=== PATIENT | female | born 1985 | race American Indian/Alaskan Native ===

== ENCOUNTER 2017-12-07 01:14 | Inpatient (IN) | payer MEDICAID ==
[2017-12-07] MEDS ORDERED: LACTATED RINGERS 1,000 ML IV ONE (01:55)
--- NOTE | 2017-12-07 03:11 | Ultrasound Report ---
FINAL REPORT PROCEDURE: US OB BPP WO NON-STRESS TECHNIQUE: Real-time limited sonographic examination was performed for evaluation of size, position, heartbeat, fluid volume for each fetus with image documentation (1 or more fetuses). CPT 23394 HISTORY: Leaking Fluid COMPARISON: No prior studies are available for comparison. FINDINGS: biophysical profile: Breathing movements: 2. movements: 2. Posterior and tone: 2. Fluid volume: 2. Total score: 8/8. IMPRESSION: Normal biophysical profile.
--- NOTE | 2017-12-07 03:23 | Ultrasound Report ---
FINAL REPORT PROCEDURE: US OB FOLLOW UP TECHNIQUE: Real-time sonography performed for focused follow-up or re-evaluation of each size/growth parameters and amniotic fluid or re-evaluation of suspected or confirmed abnormality on prior imaging. CPT 97194 HISTORY: Leaking Fluid COMPARISON: No prior studies are available for comparison. FINDINGS: IUP: Single living intrauterine . Position: Cephalic. Placental position: Fundal, without previa . Amniotic fluid volume: Normal . Heart rate and rhythm: 149 BPM, Regular . anatomic survey: Limited evaluation due to advanced gestational age.. MEASUREMENTS BPD: 9.32 centimeters correspond at 37 weeks and 6 days. HC: 34.2 centimeters corresponding to 39 weeks and 3 days. AC: 33.9 centimeters correspond at 37 weeks and 6 days. FL: 7.8 centimeters correspond to 40 weeks and 2 days. Mean Gestational Age (composite criteria): 38 weeks and 6 days. Ratio biometry: Normal . Estimated Weight: 3548 grams. Interval growth: Appropriate . Estimated Due Date (earliest scan): 12/15/2017. IMPRESSION: 1. Single living intrauterine gestation at approximately 38 weeks and 6 days 2. EDC by US 12/15/2017.
[2017-12-07 04:13] LABS: Hematocrit 32.9 % (30.3-42.9); Hemoglobin 10.9 gm/dl (10.1-14.3); Mean Corpuscular HGB Conc 33 % (30-34); Mean Corpuscular Volume 77 fl (79-97); Platelet Count 244 K/mm3 (140-440); Red Blood Count 4.26 M/mm3 (3.65-5.03); Red Cell Distribution Width 15.1 % (13.2-15.2)
[2017-12-07 04:18] LABS: Mean Corpuscular Hemoglobin 26 pg (28-32)
[2017-12-07 04:48] LABS: Hepatitis C Virus Antibody Non-Reactive (NonReactive)
[2017-12-07 06:03] LABS: Rubella IgG Antibody Immune (Immune)
[2017-12-07] MEDS ORDERED: MINERAL OIL PO PRN (08:22)
[2017-12-07] MEDS ORDERED: BRETHINE IVP PRN (08:22)
[2017-12-07] MEDS ORDERED: BRETHINE SUB-Q PRN (08:22)
[2017-12-07] MEDS ORDERED: STADOL IV PRN (08:22)
[2017-12-07] MEDS ORDERED: POLYCILLIN/NS 2 GM/100 ML 2 GM/100 ML BAG IV ONE (08:22)
[2017-12-07] MEDS ORDERED: PHENERGAN PO PRN (08:22)
[2017-12-07] MEDS ORDERED: SUBLIMAZE IV PRN (08:22)
[2017-12-07] MEDS ORDERED: XYLOCAINE 2% INFILTRATI ONE (08:22)
[2017-12-07] MEDS ORDERED: ZOFRAN IV PRN (08:22)
--- NOTE | 2017-12-07 08:29 | History and Physical Report ---
History of Present Illness Date of examination: 12/07/17 Date of admission: 12/07/17 03:24 Chief complaint: Leaking fluid since 19 History of present illness: Pt is a 32yo BF EDC 12/04/17; EGA 40 3/7 weeks presents to L&D complaining of leaking fluid since 19 followed by irregular contractions. She received care at [place], and records are not available. Past History Past Medical History: asthma Past Surgical History: no surgical history Social history: no significant social history, single - Obstetrical History Expected Date of Delivery: 12/04/17 Actual Gestation: 40 Week(s) 3 Day(s) : 2 Medications and Allergies Allergies Allergy/AdvReac Type Severity Reaction Status Date / Time ibuprofen [From Motrin] Allergy MOUTH NUMB Verified 01/01/15 08:45 naproxen Allergy Hives Verified 01/01/15 08:45 shellfish derived Allergy Angioedema Verified 01/01/15 08:45 Home Medications Medication Instructions Recorded Confirmed Last Taken Type Sulfamethoxazole/Trimethoprim 1 each PO BID #20 tablet 01/01/15 Unknown Rx [Bactrim DS TAB] Review of Systems All systems: negative - Vital Signs Vital signs: Vital Signs Pulse BP 88 116/55 12/07/17 01:34 12/07/17 01:34 Temp Pulse Resp BP Pulse Ox 98.1 F 69 16 127/61 99 12/07/17 07:40 12/07/17 08:22 12/07/17 07:40 12/07/17 07:42 12/07/17 08:22 - Physical Exam Breasts: Positive: deferred Cardiovascular: Regular rate Lungs: Positive: Clear to auscultation Abdomen: Positive: normal appearance Genitourinary (Female): Positive: normal external genitalia Vagina: Positive: other (clear fluid) Uterus: Positive: enlarged - Obstetrical FHR: category 1 Uterine Contraction Monitor Mode: External Cervical Dilatation: 1 (per nurse) Cervical Effacement Percentage: 50 (per nurse) station: -3 Uterine Contraction Pattern: Irregular Uterine Tone Measurement Phase: Contraction Uterine Contraction Intensity: Mild Results Result Diagrams: 12/07/17 03:51 Abnormal lab results 12/07/17 Range/Units 03:51 MCV 77 L (79-97) fl MCH 26 L (28-32) pg All other labs normal. Ultrasound: report reviewed Assessment and Plan - Patient Problems (1) 40 weeks gestation of Onset Date: 12/07/17 Current Visit: Yes Status: Acute Plan to address problem: A: IUP @ 40 3/7 weeks SROM Unknown GBS P: Admit to L&D for expectant vaginal delivery IV Ampicillin Obtain records
[2017-12-07] MEDS ORDERED: PITOCin/NS 30 UNIT/500ML 30 UNITS/500 ML BAG IV SCH (09:00)
[2017-12-07] MEDS ORDERED: PITOCin/NS 20 UNIT/1000ML DRIP 20 UNITS/1,000 ML BAG IV SCH (09:00)
[2017-12-07] MEDS: PITOCin/NS 30 UNIT/500ML 30 UNITS/500 ML BAG IV SCH ×3 (09:13→14:56)
[2017-12-07] MEDS: AMPICILLIN/NS 1 GM/50 ML 1 GM/50 ML BAG IV SCH ×2 (15:03→19:32)
[2017-12-07] MEDS: LACTATED RINGERS 1,000 ML IV SCH ×2 (15:03→19:41)
--- NOTE | 2017-12-07 19:28 | Progress Note ---
Assessment and Plan - Patient Problems (1) 40 weeks gestation of Onset Date: 12/07/17 Current Visit: Yes Status: Acute Plan to address problem: A: IUP @ 40 3/7 weeks SROM GBS - Negative +RPR 1:2 P: Continue with pitocin augmentation of labor for expectant vaginal delivery records reviewed Subjective - Subjective Date of service: 12/07/17 Principal diagnosis: IUP @ 40 3/7 weeks Interval history: Pt is a 32yo BF EDC12/04/17; EGA 40 3/7 weeks currently on pitocin 20mu/ min and ritu q 2-4 mins. She received care at [place], and records are now available. GBS is Negative. Patient reports: loss of fluid, movement normal, contractions, no new complaints, no vaginal bleeding Objective - Vital Signs Vital Signs: Vital Signs - 12hr 12/07/17 12/07/17 12/07/17 07:32 07:37 07:40 Temperature 98.1 F Pulse Rate 74 70 80 Respiratory 16 Rate Blood Pressure Blood Pressure 127/61 [Right] O2 Sat by Pulse 100 100 Oximetry 12/07/17 12/07/17 12/07/17 07:42 07:47 07:52 Temperature Pulse Rate 73 78 73 Respiratory Rate Blood Pressure 127/61 Blood Pressure [Right] O2 Sat by Pulse 99 99 99 Oximetry 12/07/17 12/07/17 12/07/17 07:57 08:02 08:07 Temperature Pulse Rate 77 65 75 Respiratory Rate Blood Pressure Blood Pressure [Right] O2 Sat by Pulse 99 98 99 Oximetry 12/07/17 12/07/17 12/07/17 08:12 08:17 08:22 Temperature Pulse Rate 83 79 69 Respiratory Rate Blood Pressure Blood Pressure [Right] O2 Sat by Pulse 99 99 99 Oximetry 12/07/17 12/07/17 12/07/17 08:27 08:32 08:37 Temperature Pulse Rate 70 85 74 Respiratory Rate Blood Pressure Blood Pressure [Right] O2 Sat by Pulse 99 99 99 Oximetry 12/07/17 12/07/17 08:42 08:47 Temperature Pulse Rate 70 82 Respiratory Rate Blood Pressure Blood Pressure [Right] O2 Sat by Pulse 99 100 Oximetry - Exam Abdomen: Present: normal appearance, soft Uterus: Present: normal FHR: category 1 Uterine Contraction Monitor Mode: External Cervical Dilatation: 4 Cervical Effacement Percentage: 70 station: -2 Uterine Contraction Pattern: Regular Uterine Tone Measurement Phase: Contraction Uterine Contraction Intensity: Moderate - Labs Labs: Abnormal Labs 12/07/17 03:51 MCV 77 L MCH 26 L Laboratory Results - last 24 hr 12/07/17 12/07/17 12/07/17 03:51 03:51 03:51 WBC 8.9 RBC 4.26 Hgb 10.9 Hct 32.9 MCV 77 L MCH 26 L MCHC 33 RDW 15.1 Plt Count 244 RPR Titer 1:2 RPR Weakly reactive Hep Bs Antigen Hepatitis C Antibody Non-reactive HIV 1&2 Antibody Rapid HIV P24 Antigen Rubella IgG Antibody Immune Blood Type Antibody Screen 12/07/17 12/07/17 12/07/17 03:51 03:51 03:59 WBC RBC Hgb Hct MCV MCH MCHC RDW Plt Count RPR Titer RPR Hep Bs Antigen Non-reactive Hepatitis C Antibody HIV 1&2 Antibody Rapid Non react HIV P24 Antigen Non react Rubella IgG Antibody Blood Type B POSITIVE Antibody Screen Negative
[2017-12-07] MEDS ORDERED: NARCAN 2 MG/2 ML IV PRN (21:47)
--- NOTE | 2017-12-07 21:47 | Anesthesia Consultation ---
Anesthesia Consult and Med Hx Date of service: 12/07/17 - Airway Anesthetic Teeth Evaluation: Good ROM Head & Neck: Adequate Mental/Hyoid Distance: Adequate Mallampati Class: Class II Intubation Access Assessment: Good - Pulmonary Exam CTA: Yes - Cardiac Exam Cardiac Exam: No Murmur - Pre-Operative Health Status ASA Pre-Surgery Classification: ASA3 Proposed Anesthetic Plan: Epidural - Pulmonary Hx Asthma: Yes COPD: No Hx Pneumonia: No - Cardiovascular System Hx Hypertension: No - Central Nervous System Hx Seizures: No Hx Psychiatric Problems: No - Endocrine Hx Renal Disease: No Hx End Stage Renal Disease: No Hx Hypothyroidism: No Hx Hyperthyroidism: No - Hematic Hx Anemia: No Hx Sickle Cell Disease: No - Other Systems Hx Alcohol Use: No Hx Obesity: Yes
[2017-12-07] MEDS ORDERED: fentaNYL-BUPIV 2 MCG/ML-0.125% 200 MCG/100 ML BAG EPIDURAL SCH (22:00)
[2017-12-08] MEDS ORDERED: PEPCID IV ONE (06:38)
[2017-12-08] MEDS ORDERED: REGLAN IV ONE (06:38)
[2017-12-08] MEDS ORDERED: BICITRA PO ONE (06:38)
--- NOTE | 2017-12-08 06:45 | Progress Note ---
Assessment and Plan - Patient Problems (1) 40 weeks gestation of Onset Date: 12/07/17 Current Visit: Yes Status: Acute Plan to address problem: A: IUP @ 40 4/7 weeks - unable to tolerate labor SROM GBS - Negative +RPR 1:2 P: Will proceed with a C Section for delivery. Pt and family members agree. Subjective - Subjective Date of service: 12/08/17 Principal diagnosis: IUP @ 40 4/7 weeks Interval history: Pt is a 32yo BF EDC/; EGA 40 4/7 weeks currently off pitocin due to late decelerations, now resolved and having minimal contractions. She has not had any further cervical change, and therefore will be delivered by C Section. Patient reports: loss of fluid, movement normal, contractions, no new complaints, no vaginal bleeding Objective - Vital Signs Vital Signs: Vital Signs - 12hr 12/07/17 12/07/17 12/07/17 21:54 21:57 22:00 Temperature Pulse Rate 70 63 66 Respiratory Rate Blood Pressure 100/49 96/47 76/39 O2 Sat by Pulse Oximetry 12/07/17 12/07/17 12/07/17 22:05 22:07 22:13 Temperature Pulse Rate 58 L 65 68 Respiratory Rate Blood Pressure 87/49 99/53 114/53 O2 Sat by Pulse Oximetry 12/07/17 12/07/17 12/07/17 22:17 22:22 22:27 Temperature Pulse Rate 70 70 81 Respiratory Rate Blood Pressure 101/52 103/53 104/56 O2 Sat by Pulse Oximetry 12/07/17 12/07/17 12/07/17 22:32 22:35 22:40 Temperature Pulse Rate 83 84 80 Respiratory Rate Blood Pressure 89/43 93/52 O2 Sat by Pulse 99 Oximetry 12/07/17 12/07/17 12/07/17 22:45 22:50 22:53 Temperature 98.5 F Pulse Rate 79 75 83 Respiratory 20 Rate Blood Pressure 118/62 O2 Sat by Pulse 100 99 Oximetry 12/07/17 12/07/17 12/07/17 22:55 23:00 23:05 Temperature Pulse Rate 77 84 86 Respiratory Rate Blood Pressure O2 Sat by Pulse 100 100 100 Oximetry 12/07/17 12/07/17 12/07/17 23:08 23:10 23:15 Temperature Pulse Rate 76 74 74 Respiratory Rate Blood Pressure 117/61 O2 Sat by Pulse 100 99 Oximetry 12/07/17 12/07/17 12/07/17 23:20 23:24 23:25 Temperature Pulse Rate 72 76 79 Respiratory Rate Blood Pressure 112/58 O2 Sat by Pulse 100 100 Oximetry 12/07/17 12/07/17 12/07/17 23:30 23:35 23:38 Temperature Pulse Rate 89 83 73 Respiratory Rate Blood Pressure 97/52 O2 Sat by Pulse 100 100 Oximetry 12/07/17 12/07/17 12/07/17 23:40 23:45 23:50 Temperature Pulse Rate 87 74 80 Respiratory Rate Blood Pressure O2 Sat by Pulse 100 100 100 Oximetry 12/07/17 12/07/17 12/08/17 23:52 23:55 00:00 Temperature Pulse Rate 86 71 77 Respiratory Rate Blood Pressure 104/54 O2 Sat by Pulse 100 100 Oximetry 12/08/17 12/08/17 12/08/17 00:05 00:08 00:10 Temperature Pulse Rate 81 81 85 Respiratory Rate Blood Pressure 109/54 O2 Sat by Pulse 99 99 Oximetry 12/08/17 12/08/17 12/08/17 00:15 00:20 00:24 Temperature Pulse Rate 78 77 78 Respiratory Rate Blood Pressure 117/56 O2 Sat by Pulse 100 100 Oximetry 12/08/17 12/08/17 12/08/17 00:25 00:30 00:35 Temperature Pulse Rate 75 76 78 Respiratory Rate Blood Pressure O2 Sat by Pulse 100 100 100 Oximetry 12/08/17 12/08/17 12/08/17 00:38 00:40 00:45 Temperature Pulse Rate 84 84 74 Respiratory Rate Blood Pressure 112/56 O2 Sat by Pulse 100 100 Oximetry 12/08/17 12/08/17 12/08/17 00:50 00:55 01:00 Temperature Pulse Rate 73 78 105 H Respiratory Rate Blood Pressure 112/53 O2 Sat by Pulse 100 100 100 Oximetry 12/08/17 12/08/17 12/08/17 01:05 01:09 01:10 Temperature Pulse Rate 77 75 91 H Respiratory Rate Blood Pressure 118/58 O2 Sat by Pulse 100 100 Oximetry 12/08/17 12/08/17 12/08/17 01:15 01:20 01:24 Temperature Pulse Rate 74 83 71 Respiratory Rate Blood Pressure 109/52 O2 Sat by Pulse 100 100 Oximetry 12/08/17 12/08/17 12/08/17 01:25 01:30 01:35 Temperature Pulse Rate 79 74 70 Respiratory Rate Blood Pressure O2 Sat by Pulse 100 100 100 Oximetry 12/08/17 12/08/17 12/08/17 01:39 01:40 01:45 Temperature Pulse Rate 83 94 H 92 H Respiratory Rate Blood Pressure 110/69 O2 Sat by Pulse 100 100 Oximetry 12/08/17 12/08/17 12/08/17 01:50 01:53 01:55 Temperature Pulse Rate 94 H 78 91 H Respiratory Rate Blood Pressure 114/56 O2 Sat by Pulse 100 100 Oximetry 12/08/17 12/08/17 12/08/17 02:00 02:05 02:10 Temperature Pulse Rate 74 83 77 Respiratory Rate Blood Pressure 110/47 O2 Sat by Pulse 99 99 99 Oximetry 12/08/17 12/08/17 12/08/17 02:15 02:20 02:25 Temperature Pulse Rate 78 74 78 Respiratory Rate Blood Pressure O2 Sat by Pulse 98 98 98 Oximetry 12/08/17 12/08/17 12/08/17 02:30 02:35 02:39 Temperature 98.2 F Pulse Rate 70 75 Respiratory 18 Rate Blood Pressure O2 Sat by Pulse 99 99 Oximetry 12/08/17 12/08/17 12/08/17 02:40 02:45 02:50 Temperature Pulse Rate 86 68 72 Respiratory Rate Blood Pressure 114/53 O2 Sat by Pulse 99 99 98 Oximetry 12/08/17 12/08/17 12/08/17 02:55 03:00 03:03 Temperature Pulse Rate 77 70 79 Respiratory Rate Blood Pressure 111/53 O2 Sat by Pulse 98 98 Oximetry 12/08/17 12/08/17 12/08/17 03:05 03:07 03:10 Temperature Pulse Rate 77 86 86 Respiratory Rate Blood Pressure O2 Sat by Pulse 98 92 97 Oximetry 12/08/17 12/08/17 12/08/17 03:15 03:20 03:23 Temperature Pulse Rate 83 85 79 Respiratory Rate Blood Pressure 123/58 O2 Sat by Pulse 98 98 Oximetry 12/08/17 12/08/17 12/08/17 03:25 03:30 03:35 Temperature Pulse Rate 87 74 77 Respiratory Rate Blood Pressure O2 Sat by Pulse 99 99 99 Oximetry 12/08/17 12/08/17 12/08/17 03:40 03:43 03:45 Temperature Pulse Rate 78 69 71 Respiratory Rate Blood Pressure 117/55 O2 Sat by Pulse 98 98 Oximetry 12/08/17 12/08/17 12/08/17 03:50 03:55 04:00 Temperature Pulse Rate 77 76 74 Respiratory Rate Blood Pressure O2 Sat by Pulse 98 98 99 Oximetry 12/08/17 12/08/17 12/08/17 04:02 04:05 04:10 Temperature Pulse Rate 81 68 71 Respiratory Rate Blood Pressure 136/60 O2 Sat by Pulse 98 100 Oximetry 12/08/17 12/08/17 12/08/17 04:15 04:20 04:23 Temperature Pulse Rate 78 70 70 Respiratory Rate Blood Pressure 115/57 O2 Sat by Pulse 99 99 Oximetry 12/08/17 12/08/17 12/08/17 04:25 04:30 04:35 Temperature Pulse Rate 76 77 71 Respiratory Rate Blood Pressure O2 Sat by Pulse 99 99 99 Oximetry 12/08/17 12/08/17 12/08/17 04:40 04:42 04:45 Temperature Pulse Rate 75 75 71 Respiratory Rate Blood Pressure 100/54 O2 Sat by Pulse 99 98 Oximetry 12/08/17 12/08/17 12/08/17 04:50 04:55 04:58 Temperature 98.4 F Pulse Rate 83 90 Respiratory 20 Rate Blood Pressure O2 Sat by Pulse 98 100 Oximetry 12/08/17 12/08/17 12/08/17 05:00 05:03 05:05 Temperature Pulse Rate 69 65 71 Respiratory Rate Blood Pressure 101/49 O2 Sat by Pulse 100 100 Oximetry 12/08/17 12/08/17 12/08/17 05:10 05:15 05:20 Temperature Pulse Rate 69 89 75 Respiratory Rate Blood Pressure O2 Sat by Pulse 99 100 100 Oximetry 12/08/17 12/08/17 12/08/17 05:22 05:25 05:30 Temperature Pulse Rate 68 71 70 Respiratory Rate Blood Pressure 109/53 O2 Sat by Pulse 100 100 Oximetry 12/08/17 12/08/17 12/08/17 05:35 05:40 05:43 Temperature Pulse Rate 74 75 68 Respiratory Rate Blood Pressure 94/55 O2 Sat by Pulse 100 100 Oximetry 12/08/17 12/08/17 12/08/17 05:45 05:50 05:55 Temperature Pulse Rate 71 77 65 Respiratory Rate Blood Pressure O2 Sat by Pulse 100 100 100 Oximetry 12/08/17 12/08/17 12/08/17 06:00 06:03 06:05 Temperature Pulse Rate 72 67 76 Respiratory Rate Blood Pressure 93/49 O2 Sat by Pulse 100 100 Oximetry 12/08/17 12/08/17 12/08/17 06:10 06:15 06:20 Temperature Pulse Rate 76 76 67 Respiratory Rate Blood Pressure O2 Sat by Pulse 100 100 100 Oximetry 12/08/17 12/08/17 12/08/17 06:22 06:25 06:30 Temperature Pulse Rate 75 76 71 Respiratory Rate Blood Pressure 97/50 O2 Sat by Pulse 100 100 Oximetry 12/08/17 06:36 Temperature Pulse Rate 103 H Respiratory Rate Blood Pressure O2 Sat by Pulse 100 Oximetry - Exam Cardiovascular: Regular rate Lungs: Clear to auscultation Abdomen: Present: normal appearance FHR: category 1 Uterine Contraction Monitor Mode: Internal Cervical Dilatation: 4 Cervical Effacement Percentage: 70 station: -2 Uterine Contraction Pattern: Irregular - Labs Labs: Abnormal Labs 12/07/17 03:51 MCV 77 L MCH 26 L Laboratory Results - last 24 hr 12/07/17 03:51 RPR Titer 1:2 RPR Weakly reactive
[2017-12-08] MEDS ORDERED: PITOCin/NS 20 UNIT/1000ML DRIP 20 UNITS/1,000 ML BAG IV SCH ×2 (07:00→09:00)
[2017-12-08] MEDS ORDERED: ANCEF/STERILE WATER 2 GM/20 ML 2 GM/20 ML SYRINGE IV NR (07:00)
[2017-12-08] MEDS ORDERED: LACTATED RINGERS 1,000 ML IV SCH (07:00)
[2017-12-08] MEDS ORDERED: NACL 0.9% IR ONE (07:40)
[2017-12-08] MEDS ORDERED: WATER FOR IRRIG STERILE IR ONE (07:40)
[2017-12-08] MEDS ORDERED: XYLOCAINE MPF 2% ONE (07:41)
[2017-12-08] MEDS ORDERED: MORPHINE ONE (07:54)
[2017-12-08] MEDS ORDERED: NEO SYNEPHRINE/NS Syringe(OR USE) IV ONE (08:13)
[2017-12-08] MEDS ORDERED: DILAUDID IV PRN ×2 (08:48)
[2017-12-08] MEDS ORDERED: BENADRYL IV PRN (08:48)
[2017-12-08] MEDS ORDERED: ZOFRAN IV PRN (08:48)
--- NOTE | 2017-12-08 08:48 | Anesthesia Day of Surgery ---
Anesthesia Day of Surgery - Day of Surgery Patient Examined: Yes Patient H&P Reviewed: Yes Patient is NPO: No (FSP)
--- NOTE | 2017-12-08 08:51 | Post Anesthesia Evaluation ---
- Post Anesthesia Evaluation Patient Participated: Yes Airway Patent: Yes Stable Respiratory Function: Yes Temp > 96.8F: Yes Pain Manageable: Yes Adequeate Hydration: Yes Anesthesia Complications: No Block Receding Appropriately: Yes
--- NOTE | 2017-12-08 08:54 | Operative Report ---
Operative Report Operative Report: Date of procedure: 12/08/2017 Pre-operative diagnosis: 1. Intrauterine at 40-4/7 weeks 2. Failure to progress in labor 3. Non-reassuring surveillance Post-operative diagnosis: Same Procedure name(s): Primary low transverse section Surgeon: Harshil Hernandez MD Discharge Planner: None Anesthesia: Epidural anesthesia by Dr. Yost EBL: 500 mL Findings: A 3854 g male infant Apgars 8 at 1 minute and 9 at 5 minutes. Clear amniotic fluid. Normal uterus. Normal tubes and ovaries bilaterally. Procedure: After the patient was prepped and draped in usual sterile fashion, and after satisfactory level of epidural anesthesia was obtained, the skin knife was used to make a transverse skin incision. The incision was excised down to layer of the fascia, which was nicked in the midline and extended laterally using the Bovie cautery. The rectus muscles were dissected off the rectus fascia both superiorly and inferiorly. The rectus bellies in the midline, and the peritoneum was entered under direct visualization. The peritoneal incision was extended superiorly and inferiorly. A bladder flap was created and the bladder blade was then placed. The uterus was scored in a curvilinear linear fashion, entered in the midline revealing clear amniotic fluid. The 's head was delivered onto the surgical field, and the oropharynx and nasopharynx were bulb suctioned. The rest of the infant's body was delivered, cord was doubly clamped and cut and the infant was handed to the waiting respiratory team. The placenta was manually removed from the uterus, and the uterus removed from its normal anatomical position. After gentle uterine lavage, the incision was inspected and found to be without extensions. It was then closed in 2 layers using 0 Vicryl suture in a running interlocking fashion, the second layer imbricating the first. After good hemostasis was achieved, copious amounts or irrigation was performed, and the gutters were suctioned free of blood and blood clots. Tisseel sealant was sprayed across the uterine incision. The uterus was then returned to its normal anatomical position, and after excellent hemostasis assured, the peritoneum was re- approximated using 3-0 Vicryl suture in a running interlocking fashion, and then the rectus muscles were re-approximated using 3-0 Vicryl suture in a figure -of-eight configuration. The fascia was then re-approximated using 0 Vicryl suture in running interlocking fashion. The subcutaneous layer was made hemostatic using Bovie cautery, the Tisseel sealant was sprayed across the fascial incision and the skin edges re-approximated using 4-0 Vicryl suture in a sub-cuticular fashion. Patient tolerated the procedure well was transported to recovery in stable condition.
[2017-12-08] MEDS ORDERED: LANSINOH TP PRN (08:57)
[2017-12-08] MEDS ORDERED: TYLENOL PO PRN (08:57)
[2017-12-08] MEDS ORDERED: TUCKS PAD TP PRN (08:57)
[2017-12-08] MEDS ORDERED: NARCAN 0.4 MG/1 ML IV PRN (08:57)
[2017-12-08] MEDS ORDERED: MYLICON PO PRN (08:57)
[2017-12-08] MEDS ORDERED: SODIUM CHLORIDE FLUSH SYRINGE 10 ML IV NR (09:00)
[2017-12-08] MEDS ORDERED: D5LR 1,000 ML IV SCH (09:00)
[2017-12-08] MEDS: PERCOCET 5/325 PO PRN ×2 (11:27→21:38)
[2017-12-08] MEDS: NORCO 5/325 PO PRN (16:19)
[2017-12-08] MEDS: ANCEF/NS 1 GM/50 ML 1 GM/50 ML BAG IV SCH ×2 (16:20→23:27)
[2017-12-08 20:45] LABS: Hematocrit 34.2 % (30.3-42.9); Hemoglobin 11.1 gm/dl (10.1-14.3)
[2017-12-08] MEDS ORDERED: NACL 0.9% 250ML 250 ML IV ONE (22:40)
[2017-12-09] MEDS: PERCOCET 5/325 PO PRN ×3 (05:30→18:15)
[2017-12-09] MEDS ORDERED: M-M-R II VACCINE SUB-Q ONE (08:59)
[2017-12-09] MEDS ORDERED: BOOSTRIX IM ONE (08:59)
--- NOTE | 2017-12-09 09:56 | Progress Note ---
Assessment and Plan - Patient Problems (1) 40 weeks gestation of Onset Date: 12/07/17 Current Visit: Yes Status: Resolved (2) Status post Onset Date: 12/09/17 Current Visit: Yes Status: Resolved Plan to address problem: A: S/P C Section - POD #1 Doing well Asymptomatic anemia - stable P: Continue RPOC Anticipate discharge in 24-48hrs Subjective - Subjective Date of service: 12/09/17 Principal diagnosis: s/p C Section - POD #1 Interval history: Pt is feeling well without complaints. Bleeding improved. Patient reports: appetite normal, voiding normally, dizzy ambulation, pain well controlled, ambulating normally, no flatus, no nauseated [place]: doing well, bottle feeding Objective - Vital Signs Latest vital signs: Vital Signs Temp Pulse Resp BP BP Pulse Ox 12/09/17 07:00 98.4 F 78 18 104/67 12/09/17 00:00 98.6 F 74 18 102/67 12/08/17 20:00 98.7 F 78 18 110/65 12/08/17 15:21 97.6 F 67 18 116/51 98 12/08/17 11:00 98.0 F 69 18 91/41 99 Intake and Output 12/08/17 12/09/17 12/09/17 22:59 06:59 14:59 Intake Total 550 Output Total 3200 600 Balance -2650 -600 Intake: IV 50 ANCEF/NS 1 GM/50 ML 1 gm 50 In 50 ml @ 100 mls/hr IV Q8H [facility] Rx#:[id number] Oral 200 Intake, Free Water 300 Output: Urine 3200 600 Indwelling Catheter 2400 Void 800 600 Other: Total, Intake Amount 200 Total, Output Amount 800 600 # Voids Void 1 1 - Exam Breasts: Present: deferred Cardiovascular: Present: Regular rate Lungs: Present: Clear to auscultation Abdomen: Present: normal appearance, soft Uterus: Present: normal, firm, fundal height below umbilicus Extremities: Present: normal Incision: Present: normal, dry, intact, dressed - Labs Labs: Laboratory Tests 12/07/17 12/07/17 12/07/17 03:51 03:51 03:51 WBC 8.9 RBC 4.26 Hgb 10.9 Hct 32.9 MCV 77 L MCH 26 L MCHC 33 RDW 15.1 Plt Count 244 RPR Titer 1:2 RPR Weakly reactive Hep Bs Antigen Hepatitis C Antibody Non-reactive HIV 1&2 Antibody Rapid HIV P24 Antigen Rubella IgG Antibody Immune Blood Type Antibody Screen 12/07/17 12/07/17 12/07/17 03:51 03:51 03:59 WBC RBC Hgb Hct MCV MCH MCHC RDW Plt Count RPR Titer RPR Hep Bs Antigen Non-reactive Hepatitis C Antibody HIV 1&2 Antibody Rapid Non react HIV P24 Antigen Non react Rubella IgG Antibody Blood Type B POSITIVE Antibody Screen Negative 12/08/17 20:22 WBC RBC Hgb 11.1 Hct 34.2 MCV MCH MCHC RDW Plt Count RPR Titer RPR Hep Bs Antigen Hepatitis C Antibody HIV 1&2 Antibody Rapid HIV P24 Antigen Rubella IgG Antibody Blood Type Antibody Screen
[2017-12-09] MEDS: MILK OF MAGNESIA PO PRN (20:00)
[2017-12-10] MEDS: PERCOCET 5/325 PO PRN ×4 (00:55→23:09)
--- NOTE | 2017-12-10 09:11 | Progress Note ---
Assessment and Plan - Patient Problems (1) 40 weeks gestation of Onset Date: 12/07/17 Current Visit: Yes Status: Resolved (2) Status post Onset Date: 12/09/17 Current Visit: Yes Status: Resolved Plan to address problem: A: S/P C Section - POD #2 Doing well Asymptomatic anemia - stable P: May go home tomorrow. Subjective - Subjective Date of service: 12/10/17 Principal diagnosis: s/p C Section - POD #2 Interval history: Pt is feeling well without complaints. She is tolerating a reg diet without nausea or vomiting, ambulating and voiding without difficulty. Patient reports: appetite normal, voiding normally, pain well controlled, flatus , ambulating normally, no dizzy ambulation, no nauseated : doing well, bottle feeding Objective - Vital Signs Latest vital signs: Vital Signs Temp Pulse Resp BP 12/10/17 00:48 98.2 F 81 20 124/60 Intake and Output 12/09/17 12/10/17 12/10/17 22:59 06:59 14:59 Output Total 1 Balance -1 Output: Urine 1 Void 1 Other: Total, Output Amount 1 - Exam Breasts: Present: deferred Cardiovascular: Present: Regular rate Lungs: Present: Clear to auscultation Abdomen: Present: normal appearance, soft Uterus: Present: normal, firm, fundal height below umbilicus Extremities: Present: normal Incision: Present: normal, dry, intact
[2017-12-10] MEDS: FEOSOL PO SCH (11:55)
[2017-12-10] MEDS: PRENATAL VITAMIN PO SCH (11:55)
[2017-12-10] MEDS: MILK OF MAGNESIA PO PRN (18:37)
[2017-12-11] MEDS: NORCO 5/325 PO PRN (03:30)
[2017-12-11] MEDS: FEOSOL PO SCH (08:51)
[2017-12-11] MEDS: PRENATAL VITAMIN PO SCH (08:52)
[2017-12-11] MEDS: PERCOCET 5/325 PO PRN (08:52)
--- NOTE | 2017-12-11 09:47 | Discharge Summary ---
Providers - Providers Date of Admission: 12/07/17 03:24 Date of discharge: 12/11/17 Attending physician: HIMA ANDREWS Primary care physician: HIMA ANDREWS Hospitalization Reason for admission: rupture of membranes, IUP at term Delivery: Procedure: section, primary low transverse Laceration: none Incision: normal, dry, intact Other procedures: none complications: none Discharge diagnosis: IUP at term delivered baby: male Hospital course: Pt is a 32yo BF EDC 12/04/17; EGA 40 3/ weeks who presented to L&D complaining of leaking fluid followed by irregular contractions. She received care at [facility], and records were requested. She was begun on pitocin for augmentation of labor but pitocin was discontinued due to late decelerations and minimal cervical change. She was therefore delivered by uncomplicated C Section, and tolerated the procedure well. By POD #2 she was tolerating a reg diet without nausea or vomiting, ambulating and voiding without difficulty, and therefore discharged to home on POD #3 in stable condition. Condition at discharge: Good Disposition: DC-01 TO HOME OR SELFCARE - Discharge Diagnoses (1) 40 weeks gestation of Status: Resolved (2) Status post Status: Resolved Plan - Discharge Medications Prescriptions: Ferrous Sulfate [Feosol 325 MG tab] 325 mg PO BID #60 tablet HYDROcodone/APAP 5-325 [[place] 5-325 mg TAB] 1 each PO Q6HR PRN #30 tablet PRN Reason: Pain, Moderate (4-6) Vit-Fe Fumar-FA [ Vitamin] 1 each PO QDAY #30 tablet - Provider Discharge Summary Activity: routine, no sex for 6 weeks, no heavy lifting 4 weeks, no strenuous exercise Diet: routine Instructions: routine Additional instructions: [] Smoking cessation referral if applicable(refer to patient education folder for contact #) [] Refer to [facility] Booklet Call your doctor immediately for: * Fever > 100.5 * Heavy vaginal bleeding ( >1 pad per hour) * Severe persistent headache * Shortness of breath * Reddened, hot, painful area to leg or breast * Drainage or odor from incision. * Keep incision clean and dry at all times and follow doctor's instructions regarding bathing/showering - Follow up plan Follow up: HIMA ANDREWS MD [Primary Care Provider] - 14 Days
[2017-12-11 15:57] VITALS: BP 131/78
== END 2017-12-11 17:50 | disposition home or self-care (01) | DRG 765 ==
LOC: TRG 01:14 → LD 03:24 → APU 12-08 08:46 → OB 12-08 10:41
PROVIDERS: ADMIT Obstetrics & Gynecology; ATTEND Obstetrics & Gynecology
PROC: 10D00Z1 Extraction of Products of Conception, Low, Open Approach (ICD-10-PCS; principal; 2017-12-08)
DX: O42.02 Full-term premature rupture of membranes, onset of labor within 24 hours of rupture (principal); Z68.43 Body mass index [BMI] 50.0-59.9, adult; O76 Abnormality in fetal heart rate and rhythm complicating labor and delivery; O90.81 Anemia of the puerperium; O99.52 Diseases of the respiratory system complicating childbirth; O99.214 Obesity complicating childbirth; O62.2 Other uterine inertia; Z37.0 Single live birth; Z3A.40 40 weeks gestation of pregnancy; J45.909 Unspecified asthma, uncomplicated; E66.9 Obesity, unspecified; D64.9 Anemia, unspecified
CPT/HCPCS: 36415; 76816; 76819; 85014; 85018; 85027; 86592; 86593; 86706; 86762; 86803; 86850; 86900; 86901; 87806; 99211; C9250; G0463; J0290; J0690; J1170; J1200; J2270; J2370; J2590; J2765; J3010; J7050; J7120; J7121

== ENCOUNTER 2018-10-07 14:28 | Emergency (ER) | payer MEDICAID, OTHER ==
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
[2018-10-07 20:39] VITALS: BP 145/72
== END 2018-10-07 20:39 | disposition home or self-care (01) ==
LOC: ED 14:28
DX: M54.2 Cervicalgia (principal); M79.644 Pain in right finger(s); M25.512 Pain in left shoulder; M25.532 Pain in left wrist; J45.909 Unspecified asthma, uncomplicated; Z79.899 Other long term (current) drug therapy; Z88.6 Allergy status to analgesic agent; Z91.013 Allergy to seafood; V43.52XA Car driver injured in collision with other type car in traffic accident, initial encounter; Y93.89 Activity, other specified; Y92.488 Other paved roadways as the place of occurrence of the external cause; Y99.8 Other external cause status
CPT/HCPCS: 99283